=== PATIENT | female | born 1950 | race Caucasian/White ===

== ENCOUNTER 2016-11-21 14:24 | Emergency (ER) | payer BC, OTHER ==
[2016-11-21 14:35] VITALS: BP 147/63; PULSE 77; TEMP 98; BMI 29.9
--- NOTE | 2016-11-21 18:21 | PDOC ---
History of Present Illness - History of Present Illness Initial Comments: 11/21/16 18:56 The patient is a 66 year old female, with a significant past medical history of diverticulitis/colon resection, HTN, hypercholesterolemia, & thyroidectomy, who presents to the emergency department complaining of left-sided abdominal pain. Patient reports that she was here in 2013 for similar symptoms Patient stated that last night she was sweating, had chills, and a subjective fever. She also stated that she is having decreased appetite and fluid intake. Patient says she can tolerate her abdominal pain and rates it at 6-7/10. She denies recent nausea, vomit, diarrhea or constipation. She denies recent chest pain or shortness of breath.She denies recent headache or dizziness. She denies recent dysuria, frequency, urgency or hematuria. Allergies: NSAIDS, simvastatin Past surgical history: colon resection - diverticulitis Social history: Nonsmoker. Primary Care Physician: Dr. Sarwat Diaz <Rosie Chino - Last Filed: 11/21/16 19:01> <Chichi Sanchez - Last Filed: 11/22/16 00:54> - General Chief Complaint: Pain Stated Complaint: ABD PAIN Time Seen by Provider: 11/21/16 18:11 Past History <Rosie Chino - Last Filed: 11/21/16 19:01> - Past Medical History Anemia: No Asthma: No Cancer: No Cardiac Disorders: No CVA: No COPD: No CHF: No Dementia: No Diabetes: No GI Disorders: Yes (ACID REFLUX; IBS; DIVERTICULOSI; RECURRENT C-DIFF COLITIS) Disorders: No HTN: Yes Hypercholesterolemia: Yes Liver Disease: No Seizures: No Thyroid Disease: Yes (MULTINODULAR GOITER) - Surgical History Abdominal Surgery: Yes (PARTIAL COLECTOMY FOR DIVERTICULAR ABSCESS) Appendectomy: No Cardiac Surgery: No Cholecystectomy: No Lung Surgery: No Neurologic Surgery: No Orthopedic Surgery: Yes (RT ROTATOR CUFF REPAIR) - Immunization History Immunization Up to Date: Yes - Psycho/Social/Smoking Cessation Hx Anxiety: No Suicidal Ideation: No Smoking Status: No Smoking History: Never smoked Have you smoked in the past 12 months: No Number of Cigarettes Smoked Daily: 0 Information on smoking cessation initiated: No Hx Alcohol Use: No Drug/Substance Use Hx: No <Chichi Sanchez - Last Filed: 11/22/16 00:54> - Past Medical History Allergies/Adverse Reactions: Allergies Allergy/AdvReac Type Severity Reaction Status Date / Time NSAIDS (Non-Steroidal Allergy Severe Rash Verified 11/21/16 14:32 Anti-Inflamma simvastatin Allergy Severe Swelling Verified 11/21/16 14:32 Home Medications: Ambulatory Orders Fenofibrate 54 mg PO HS 11/09/12 Levothyroxine [Synthroid -] 37.5 mcg PO DAILY 11/09/12 Metoprolol Succinate [Toprol XL -] 25 mg PO DAILY 11/09/12 Amlodipine Besylate [Norvasc -] 10 mg PO DAILY 08/01/14 Benazepril HCl 20 mg PO DAILY 08/01/14 Omeprazole [Prilosec] 20 mg PO DAILY 08/01/14 Cephalexin Monohydrate [Keflex -] 500 mg PO BID #14 capsule 11/22/16 Review of Systems - Review of Systems Able to Perform ROS?: Yes Comments:: 11/21/16 18:56 GENERAL/CONSTITUTIONAL: + chills +subjective fever. + diaphoresis. +decreased appetite & fluid intake. No weakness. HEAD, EYES, EARS, NOSE AND THROAT: No change in vision. No ear pain or discharge. No sore throat. GASTROINTESTINAL: + Left-sided abdominal pain. No nausea, vomiting, diarrhea or constipation. GENITOURINARY: No dysuria, frequency, or change in urination. CARDIOVASCULAR: No chest pain or shortness of breath. RESPIRATORY: No cough, wheezing, or hemoptysis. MUSCULOSKELETAL: No joint or muscle swelling or pain. No neck or back pain. SKIN: No rash NEUROLOGIC: No headache, vertigo, loss of consciousness, or change in strength/ sensation. ENDOCRINE: No increased thirst. No abnormal weight change. HEMATOLOGIC/LYMPHATIC: No anemia, easy bleeding, or history of blood clots. ALLERGIC/IMMUNOLOGIC: No hives or skin allergy. <Rosie Chino - Last Filed: 11/21/16 19:01> *Physical Exam - Vital Signs Last Vital Signs Temp Pulse Resp BP Pulse Ox 98.0 F 77 16 147/63 100 11/21/16 14:32 11/21/16 14:32 11/21/16 14:32 11/21/16 14:32 11/21/16 14:32 <Rosie Chino - Last Filed: 11/21/16 19:01> - Vital Signs Last Vital Signs Temp Pulse Resp BP Pulse Ox 98.0 F 77 16 147/63 100 11/21/16 14:32 11/21/16 14:32 11/21/16 14:32 11/21/16 14:32 11/21/16 14:32 - Physical Exam Comments: GENERAL: Awake, alert, and fully oriented, in no acute distress. Appears uncomfortable. HEAD: No signs of trauma EYES: PERRLA, EOMI, sclera anicteric, conjunctiva clear ENT: Auricles normal inspection, hearing grossly normal, nares patent, oropharynx clear without exudates. Moist mucosa NECK: Normal ROM, supple, no lymphadenopathy, JVD, or masses LUNGS: Breath sounds equal, clear to auscultation bilaterally. No wheezes, and no crackles HEART: Regular rate and rhythm, normal S1 and S2, no murmurs, rubs or gallops ABDOMEN: Soft, +LLQ tenderness, normoactive bowel sounds. No guarding, no rebound. No masses EXTREMITIES: Normal range of motion, no edema. No clubbing or cyanosis. No cords, erythema, or tenderness NEUROLOGICAL: Cranial nerves II through XII grossly intact. Normal speech, normal gait SKIN: Warm, Dry, normal turgor, no rashes or lesions noted. <Chichi Sanchez - Last Filed: 11/22/16 00:54> ED Treatment Course - LABORATORY CBC & Chemistry Diagram: 11/21/16 19:30 11/21/16 19:30 <Chichi Sanchez - Last Filed: 11/22/16 00:54> Medical Decision Making - Medical Decision Making 11/22/16 00:[address] results and UA results with patient. She has been tolerating PO, will treat with PO abx for UTI. UCx pending. Stable for DC home. <Chichi Sanchez - Last Filed: 11/22/16 00:54> *DC/Admit/Observation/Transfer - Attestations Scribe Attestion: 11/21/16 18:56 Documentation prepared by Rosie Chino, acting as medical office receptionist for Chichi Sanchez MD. <Rosie Chino - Last Filed: 11/21/16 19:01> - Discharge Dispostion Admit: No <Chichi Sanchez - Last Filed: 11/22/16 00:54> Diagnosis at time of Disposition: UTI (urinary tract infection) Qualifiers: Urinary tract infection type: acute cystitis Hematuria presence: without hematuria Qualified Code(s): N30.00 - Acute cystitis without hematuria - Discharge Dispostion Disposition: HOME Condition at time of disposition: Stable - Prescriptions Prescriptions: Cephalexin Monohydrate [Keflex -] 500 mg PO BID #14 capsule - Referrals Referrals: Sarwat Diaz MD [Primary Care Provider] - - Patient Instructions Printed Discharge Instructions: DI for Urinary Tract Infection (UTI)
[2016-11-21] MEDS ORDERED: ACETAMINOPHEN 1000 MG/100 ML VIAL (NON FORMULARY) IVPB ONE (18:51)
[2016-11-21] MEDS ORDERED: SODIUM CHLORIDE 1,000 ML IV STA (18:51)
[2016-11-21] MEDS ORDERED: ACETAMINOPHEN INJECTION 100 ML IVPB ONE (19:18)
[2016-11-21 19:43] LABS: BASOPHIL 0.5 % (0-2.0); EOSINOPHIL 1.4 % (0-4.5); MCH 29.4 pg (25.7-33.7); MCHC 33.6 g/dl (32.0-36.0); MEAN CELL VOLUME 87.5 fl (80-96); NEUTROPHILS 67.7 % (42.8-82.8); PLATELET COUNT 302 K/MM3 (134-434); RDW 13.4 % (11.6-15.6); WHITE BLOOD COUNT 6.6 K/mm3 (4.0-10.0)
[2016-11-21 19:44] LABS: URINE APPEARANCE SLCLOUDY; URINE BILIRUBIN NEGATIVE (NEGATIVE); URINE BLOOD NEGATIVE (NEGATIVE); URINE COLOR YELLOW; URINE GLUCOSE (UA) NEGATIVE (NEGATIVE); URINE KETONE NEGATIVE (NEGATIVE); URINE NITRITE NEGATIVE (NEGATIVE); URINE PROTEIN NEGATIVE (NEGATIVE); URINE UROBILINOGEN NEGATIVE mg/dL (0.2-1.0)
[2016-11-21 20:05] LABS: INR 1.04 (0.82-1.09); PROTHROMBIN TIME (PATIENT) 11.4 SEC (9.98-11.88)
[2016-11-21 20:13] LABS: ALBUMIN 4.5 g/dl (3.4-5.0); ANION GAP 7 (8-16); CALCIUM 9.8 mg/dL (8.5-10.1); CO2 26 mmol/L (21-32); CREATININE 0.7 mg/dL (0.55-1.02); GLUCOSE,RANDOM 84 mg/dL (74-106); SGOT/AST 27 U/L (15-37); SGPT/ALT 35 U/L (12-78)
[2016-11-21 20:14] LABS: URINE LEUK ESTERASE 2+ (NEGATIVE)
[2016-11-21 20:15] LABS: ALK PHOS 75 U/L (45-117); BILIRUBIN,TOTAL 0.5 mg/dL (0.2-1.0); TOT PROT 7.4 g/dl (6.4-8.2); URINE HYALINE CAST 1 /lpf; URINE MUCUS RARE; URINE RBC 1 /hpf (0-3); URINE WBC 12 /hpf (3-5)
[2016-11-22] MEDS ORDERED: CEPHALEXIN MONOHYDRATE 500 MG CAPSULE (UD) PO ONE (00:02)
[2016-11-22] MEDS ORDERED: CEPHALEXIN MONOHYDRATE 250 MG CAPSULE (FP) ONE (00:13)
== END 2016-11-22 00:19 | disposition home or self-care (01) ==
LOC: JER 14:24
PROC: 3E033NZ Introduction of Analgesics, Hypnotics, Sedatives into Peripheral Vein, Percutaneous Approach (ICD-10-PCS; principal; 2016-11-21)
DX: N30.00 Acute cystitis without hematuria (principal); I10 Essential (primary) hypertension; E78.00 Pure hypercholesterolemia, unspecified; E04.2 Nontoxic multinodular goiter; Z87.19 Personal history of other diseases of the digestive system
CPT/HCPCS: 36415; 74177-TC; 80053; 81003; 81015; 83690; 85025; 85610; 87040; 87086; 96374; 99283-25; Q9967

== ENCOUNTER 2022-08-26 04:26 | Day surgery (SDC) | payer BC ==
[2022-08-25 12:11] VITALS: BMI 27.1
[2022-08-26 10:00] VITALS: TEMP 98
[2022-08-26 10:42] VITALS: BP 105/47; PULSE 69; RESP 14
== END 2022-08-26 10:45 | disposition home or self-care (01) ==
LOC: JASU-ENDO 04:26
PROVIDERS: ATTEND Internal Medicine Gastroenterology
PROC: 0DBP8ZX Excision of Rectum, Via Natural or Artificial Opening Endoscopic, Diagnostic (ICD-10-PCS; 2022-08-26)
PROC: 0DBK8ZX Excision of Ascending Colon, Via Natural or Artificial Opening Endoscopic, Diagnostic (ICD-10-PCS; principal; 2022-08-26 10:00)
DX: Z12.11 Encounter for screening for malignant neoplasm of colon (principal); D12.2 Benign neoplasm of ascending colon; D12.8 Benign neoplasm of rectum; K57.30 Diverticulosis of large intestine without perforation or abscess without bleeding; Z86.010 Personal history of colon polyps; R19.5 Other fecal abnormalities
CPT/HCPCS: 88305-TC